=== PATIENT | male | born 1960 | race Caucasian/White ===

== ENCOUNTER 2020-05-30 19:43 | Emergency (ER) | payer MEDICAID ==
[~2020-05-30] VITALS: Ht 165.1 cm; Wt 73.0 kg
[2020-05-30 23:58] VITALS: BP 122/66
== END 2020-05-30 23:59 | disposition home or self-care (01) ==
LOC: ER 19:43
DX: H10.32 Unspecified acute conjunctivitis, left eye (principal); H01.006 Unspecified blepharitis left eye, unspecified eyelid
CPT/HCPCS: 99283

== ENCOUNTER 2024-11-22 12:58 | Emergency (ER) | payer MEDICAID ==
[~2024-11-22] VITALS: Ht 165.1 cm; Wt 75.0 kg
[2024-11-22 12:59] VITALS: O2SAT 97
[2024-11-22 13:09] VITALS: BP 109/52; PULSE 85; RESP 16; TEMP 36.8; O2SAT 98
== END 2024-11-22 15:02 | disposition left against medical advice (07) ==
LOC: ER 12:58
DX: M79.675 Pain in left toe(s) (principal); Z53.21 Procedure and treatment not carried out due to patient leaving prior to being seen by health care provider